=== PATIENT | female | born 1985 | race Caucasian/White ===

== ENCOUNTER 2017-08-29 02:04 | Inpatient (IN) | payer OTHER ==
[2017-08-29] MEDS ORDERED: Nalbuphine 10 MG/1 ML Vial IVPUSH PRN (03:08)
[2017-08-29] MEDS ORDERED: Sodium Chloride 0.9% 10 ML Syringe FLUSH PRN (03:08)
[2017-08-29] MEDS ORDERED: Sodium Chloride 0.9% 2.5 ML Syringe FLUSH PRN (03:08)
[2017-08-29] MEDS ORDERED: Water For Irrigation,Sterile 1,000 ML Container IRR PRN (03:08)
[2017-08-29] MEDS ORDERED: Ampicillin 2 GM in Sodium Chloride 0.9% 100 ML IV ONE (03:08)
[2017-08-29] MEDS ORDERED: Misoprostol 200 MCG Tab PO PRN (03:08)
[2017-08-29] MEDS ORDERED: Lidocaine 1% 50 ML MDV INJECT PRN (03:08)
[2017-08-29] MEDS ORDERED: Carboprost Tromethamine 250 MCG/1 ML Amp IM PRN (03:08)
[2017-08-29] MEDS ORDERED: Butorphanol 1 MG/ML SDV IVPUSH PRN (03:08)
[2017-08-29] MEDS ORDERED: Methylergonovine 0.2 MG/1 ML Amp IM PRN (03:08)
[2017-08-29] MEDS ORDERED: Oxytocin/0.9 % Sodium Chloride 30 UNIT/500 ML BAG IV SCH ×2 (03:15→05:15)
[2017-08-29] MEDS: Lactated Ringers 1,000 ML IV SCH ×4 (03:24→12:04)
[2017-08-29] MEDS: Ampicillin 1 GM in Sodium Chloride 0.9% 50 ML IV SCH ×2 (08:06→11:13)
--- NOTE | 2017-08-29 10:49 | PCM.PREANE ---
Preanesthetic Assessment - Anesthesia/Transfusion/Family Hx Anesthesia History: Prior Anesthesia Without Reaction Transfusion History: No Prior Transfusion(s) - Review of Systems General: No Symptoms Pulmonary: No Symptoms Cardiovascular: No Symptoms Gastrointestinal: No Symptoms Neurological: No Symptoms Other: Reports: None - Physical Assessment Height: 5 ft 4 in Weight: 89.811 kg ASA Class: 2 Mental Status: Alert & Oriented x3 Airway Class: Mallampati = 2 Dentition: Reports: Normal Dentition Thyro-Mental Finger Breadths: 3 Mouth Opening Finger Breadths: 3 ROM/Head Extension: Full Lungs: Clear to Auscultation, Normal Respiratory Effort Cardiovascular: Regular Rate, Regular Rhythm - Lab Values: Laboratory Last Values WBC 6.37 K/uL (4.0-11.0) 08/29/17 03:25 RBC 3.84 M/uL (4.30-5.90) L 08/29/17 03:25 Hgb 11.6 g/dL (12.0-16.0) L 08/29/17 03:25 Hct 33.6 % (36.0-46.0) L 08/29/17 03:25 MCV 87.5 fL (80.0-98.0) 08/29/17 03:25 MCH 30.2 pg (27.0-32.0) 08/29/17 03:25 MCHC 34.5 g/dL (31.0-37.0) 08/29/17 03:25 RDW Std Deviation 41.8 fl (28.0-62.0) 08/29/17 03:25 RDW Coeff of Janiya 13 % (11.0-15.0) 08/29/17 03:25 Plt Count 204 K/uL (150-400) 08/29/17 03:25 MPV 12.70 fL (7.40-12.00) H 08/29/17 03:25 Nucleated RBC % 0.0 /100WBC 08/29/17 03:25 Nucleated RBCs # 0 K/uL 08/29/17 03:25 Membrane Rupture POSITIVE 08/29/17 02:25 Blood Type A POSITIVE 08/29/17 03:25 Antibody Screen NEGATIVE 08/29/17 03:25 - Allergies Allergies/Adverse Reactions: Allergies Allergy/AdvReac Type Severity Reaction Status Date / Time No Known Allergies Allergy Verified 04/25/17 17:30 - Acknowledgements Anesthesia Type Planned: Epidural Pt an Appropriate Candidate for the Planned Anesthesia: Yes Alternatives and Risks of Anesthesia Discussed w Pt/Guardian: Yes Pt/Guardian Understands and Agrees with Anesthesia Plan: Yes PreAnesthesia Questionnaire - Past Health History Medical/Surgical History: Denies Medical/Surgical History HEENT History: Reports: None Cardiovascular History: Reports: None Respiratory History: Reports: None Gastrointestinal History: Reports: GERD Genitourinary History: Reports: Renal Calculus [employer]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 Para: 0 Musculoskeletal History: Reports: SLE Neurological History: Reports: Migraines Endocrine/Metabolic History: Reports: Obesity/BMI 30+, Other (See Below) Other Endocrine/Metabolic History: Lupus Immunologic History: Reports: SLE - Infectious Disease History Infectious Disease History: Reports: Chicken Pox, Human Papilloma Virus (HPV) - Past Surgical History HEENT Surgical History: Reports: Other (See Below) Other HEENT Surgeries/Procedures: [place] teeth extraction - SUBSTANCE USE Smoking Status *Q: Never Smoker Days Per Week of Alcohol Use: 0 Recreational Drug Use History: No - HOME MEDS Home Medications: Home Meds Hydroxychloroquine [Plaquenil] 200 mg PO DAILY 08/01/14 [History] Vit 90/Iron Fum/Folic [ Formula] 1 each PO DAILY 08/01/14 [ History] - CURRENT (IN HOUSE) MEDS Current Meds: Current Medications Butorphanol Tartrate (Stadol) 1 mg IVPUSH Q1H PRN PRN Reason: Pain Carboprost Tromethamine (Hemabate Ds) 250 mcg IM ASDIRECTED PRN PRN Reason: Post Hemorrhage Lactated Ringer's (Ringers, Lactated) 1,000 mls @ 150 mls/hr IV ASDIRECTED ELINOR Last Admin: 08/29/17 08:05 Dose: 150 mls/hr Oxytocin/Sodium Chloride (Oxytocin 30 Unit/500 Ml-Ns) 30 unit in 500 mls @ 999 mls/hr IV TITRATE ELINOR Ampicillin Sodium 1 gm/ Sodium (Chloride) 50 mls @ 100 mls/hr IV Q4H ELINOR Last Admin: 08/29/17 08:06 Dose: 100 mls/hr Oxytocin/Sodium Chloride (Oxytocin 30 Unit/500 Ml-Ns) 30 unit in 500 mls @ 2 mls/hr IV TITRATE ELINOR; 2 MUNITS/MIN PRN Reason: Protocol Last Infusion: 08/29/17 08:18 Dose: 4 munits/min, 4 mls/hr Lidocaine HCl (Xylocaine 1%) 50 ml INJECT .ONCE PRN PRN Reason: Laceration repair Methylergonovine Maleate (Methergine) 0.2 mg IM ASDIRECTED PRN PRN Reason: Post Hemorrhage Misoprostol (Cytotec) 200 mcg PO .ONCE PRN PRN Reason: Post Hemorrhage Nalbuphine HCl (Nubain) 10 mg IVPUSH Q1H PRN PRN Reason: Pain (severe 7-10) Sodium Chloride (Saline Flush) 10 ml FLUSH ASDIRECTED PRN PRN Reason: Keep Vein Open Sodium Chloride (Saline Flush) 2.5 ml FLUSH ASDIRECTED PRN PRN Reason: Keep Vein Open Sterile Water (Sterile Water For Irrigation) 1,000 ml IRR ASDIRECTED PRN PRN Reason: delivery Discontinued Medications Ampicillin Sodium 2 gm/ Sodium (Chloride) 100 mls @ 200 mls/hr IV ONETIME ONE Stop: 08/29/17 03:37 Last Admin: 08/29/17 03:41 Dose: 200 mls/hr
[2017-08-29] MEDS ORDERED: fentaNYL 100 MCG/2 ML SDV ONE (10:51)
[2017-08-29] MEDS ORDERED: Ropivacaine HCl/PF 0 ML ONE (10:51)
[2017-08-29] MEDS ORDERED: Docusate Sodium 100 MG Cap PO PRN (13:07)
[2017-08-29] MEDS ORDERED: Ibuprofen 400 MG Tab PO PRN (13:07)
[2017-08-29] MEDS ORDERED: Acetaminophen 500 MG Tab PO PRN ×2 (13:07)
[2017-08-29] MEDS ORDERED: Lanolin 100% Cream 7 GM Tube TOP PRN (13:07)
[2017-08-29] MEDS ORDERED: oxyCODONE 5 MG Tab PO PRN (13:07)
[2017-08-29] MEDS ORDERED: Bisacodyl 10 MG Supp RECTAL PRN (13:07)
[2017-08-29] MEDS: Ibuprofen 800 MG Tab PO PRN ×2 (14:52→21:41)
[2017-08-29] MEDS: Witch Hazel Medicated Pads 40/Jar TOP PRN (14:53)
[2017-08-29] MEDS: Benzocaine/Menthol 20%-0.5% Spray 78 GM Cannister TOP PRN (14:53)
--- NOTE | 2017-08-29 17:19 | PCM48HPAN ---
Post Anesthesia Note - EVALUATION WITHIN 48HRS OF ANESTHETIC Vital Signs in Normal Range: Yes Patient Participated in Evaluation: Yes Respiratory Function Stable: Yes Airway Patent: Yes Cardiovascular Function Stable: Yes Hydration Status Stable: Yes Pain Control Satisfactory: Yes Nausea and Vomiting Control Satisfactory: Yes Mental Status Recovered: Yes
[2017-08-29] MEDS: Hydroxychloroquine 200 MG Tab PO SCH (23:01)
--- NOTE | 2017-08-29 23:55 | OR ---
SURGEON: Reena Cramer MD DATE OF PROCEDURE: 08/29/2017 PREOPERATIVE DIAGNOSES: 1. Term at 39 weeks and 1 day. 2. Premature rupture of membranes. 3. Group B streptococcus positive. POSTOPERATIVE DIAGNOSES: 1. Term at 39 weeks and 1 day. 2. Premature rupture of membranes. 3. Group B streptococcus positive. 4. Delivered. PROCEDURE: 1. Spontaneous vaginal delivery. 2. Repair of second-degree perineal laceration. ANESTHESIA: Intrathecal. ESTIMATED BLOOD LOSS: 200 mL. COMPLICATIONS: None. DISPOSITION: Mother and baby stable in Labor and Delivery room, [facility]. FINDINGS: Male , Weight 3820 g, score 9 and 9 at 1 and 5 minutes respectively. Grossly normal placenta with 3-vessel cord. Second-degree midline perineal laceration. BRIEF HISTORY: Germaine is a 32-year-old G2, P1, who presented to Labor and Delivery in the early hours of the morning with a history of leakage of clear fluid since about 01:00 p.m. of the previous day. She denied contractions, vaginal bleeding, and reported good movement. GBS status is positive. is complicated by systemic lupus erythematosus, which has been well controlled on Plaquenil. On admission, she was confirmed to have premature rupture of membranes with positive AmniSure. Antibiotics were commenced for positive GBS status and induction of labor commenced with oxytocin as per protocol. Vaginal examination on admission, she was 2 cm, 70% effaced, station -3. After she had received a second dose of antibiotics, artificial rupture of membranes of forebag was performed with clear amniotic fluid noted. She progressed nicely, became fully dilated and commenced active pushing. She pushed quite well bringing the baby's head down to a +4 station, and was set up for delivery in a modified dorsal lithotomy position. The heart tracing was category 2 alternating with category 1. PROCEDURE IN DETAIL: She had a spontaneous vaginal delivery of a live male in direct occipital anterior position, loose nuchal cord was reduced. Anterior and posterior shoulder and the rest of the baby was delivered without difficulty. The baby was vigorous and cried spontaneously at . The baby was delivered onto the maternal abdomen with the nursery nurse in attendance. Delayed cord clamping was performed. With delivery of the infant, oxytocin infusion was changed to titration for active management of 3rd stage of labor. Cord blood and gas samples were obtained.Placenta was delivered by controlled cord traction appeared to be complete and intact. Examination of the perineum revealed a midline second- degree laceration. It was repaired in 3 layers using 2-0 Vicryl suture. Repair was hemostatic. Uterine massage was performed and uterus was found to be well contracted below the umbilicus. The patient tolerated the procedure well. Sponge, instrument, and needle counts were correct at the end of the delivery. ADUMVIV / BECCA /[id number] MTDD
[2017-08-30] MEDS: Ibuprofen 800 MG Tab PO PRN ×2 (04:57→11:46)
--- NOTE | 2017-08-30 07:59 | PCM.PNPP ---
- General Info Date of Service: 08/30/17 Functional Status: Reports: Pain Controlled, Tolerating Diet, Ambulating, Urinating - Review of Systems General: Denies: Fever, Weakness, Malaise, Chills HEENT: Denies: Headaches Pulmonary: Denies: Shortness of Breath, Pleuritic Chest Pain, Cough Cardiovascular: Denies: Chest Pain, Palpitations, Dyspnea on Exertion, Lightheadedness Gastrointestinal: Denies: Diarrhea, Nausea, Vomiting Genitourinary: Denies: Dysuria, Incontinence Psychiatric: Denies: Confusion, Depression, Anxiety - General Info Date of Service: 08/30/17 - Patient Data Vital Signs - Most Recent: Last Vital Signs Temp 36.7 C 08/30/17 04:45 Pulse 81 08/30/17 04:45 Resp 16 08/30/17 04:45 BP 97/60 08/30/17 04:45 Pulse Ox 98 08/30/17 04:45 Weight - Most Recent: 198 lb Lab Results - Last 24 Hours: Laboratory Results - last 24 hr 08/30/17 Range/Units 05:10 Hgb 10.7 L (12.0-16.0) g/dL Hct 31.6 L (36.0-46.0) % Med Orders - Current: Current Medications Acetaminophen (Tylenol Extra Strength) 500 mg PO Q4H PRN PRN Reason: Pain Acetaminophen (Tylenol Extra Strength) 1,000 mg PO Q4H PRN PRN Reason: Pain Benzocaine/Menthol (Dermoplast Pain Relief 20%-0.5% [place]) 78 gm TOP ASDIRECTED PRN PRN Reason: Perineal Comfort Measure Last Admin: 08/29/17 14:53 Dose: 1 can Bisacodyl (Dulcolax) 10 mg RECTAL .ONCE PRN PRN Reason: Constipation Docusate Sodium (Colace) 100 mg PO BID PRN PRN Reason: Constipation Emollient Ointment (Lansinoh Hpa) 0 gm TOP ASDIRECTED PRN PRN Reason: Sore Nipples Last Admin: 08/30/17 04:45 Dose: 1 tube Hydroxychloroquine Sulfate (Plaquenil) 200 mg PO BID ELINOR Last Admin: 08/29/17 23:01 Dose: 200 mg Ibuprofen (Motrin) 400 mg PO Q4H PRN PRN Reason: Pain Ibuprofen (Motrin) 800 mg PO Q6H PRN PRN Reason: Pain Last Admin: 08/30/17 04:57 Dose: 800 mg Methylergonovine Maleate (Methergine) 0.2 mg IM ASDIRECTED PRN PRN Reason: Post Hemorrhage Misoprostol (Cytotec) 200 mcg PO .ONCE PRN PRN Reason: Post Hemorrhage Oxycodone HCl (Oxycodone) 5 mg PO Q2H PRN PRN Reason: Pain Last Admin: 08/29/17 21:42 Dose: 5 mg Witch Megan (Tucks) 1 pad TOP ASDIRECTED PRN PRN Reason: comfort care Last Admin: 08/29/17 14:53 Dose: 1 tub Discontinued Medications Butorphanol Tartrate (Stadol) 1 mg IVPUSH Q1H PRN PRN Reason: Pain Carboprost Tromethamine (Hemabate Ds) 250 mcg IM ASDIRECTED PRN PRN Reason: Post Hemorrhage Fentanyl (Sublimaze) Confirm Administered Dose 100 mcg .ROUTE .STK-MED ONE Stop: 08/29/17 10:52 Last Admin: 08/29/17 23:40 Dose: Not Given Ampicillin Sodium 2 gm/ Sodium (Chloride) 100 mls @ 200 mls/hr IV ONETIME ONE Stop: 08/29/17 03:37 Last Admin: 08/29/17 03:41 Dose: 200 mls/hr Lactated Ringer's (Ringers, Lactated) 1,000 mls @ 150 mls/hr IV ASDIRECTED ELINOR Last Admin: 08/29/17 12:04 Dose: 999 mls/hr Oxytocin/Sodium Chloride (Oxytocin 30 Unit/500 Ml-Ns) 30 unit in 500 mls @ 999 mls/hr IV TITRATE ELINOR Ampicillin Sodium 1 gm/ Sodium (Chloride) 50 mls @ 100 mls/hr IV Q4H ELINOR Last Admin: 08/29/17 11:13 Dose: 100 mls/hr Oxytocin/Sodium Chloride (Oxytocin 30 Unit/500 Ml-Ns) 30 unit in 500 mls @ 2 mls/hr IV TITRATE ELINOR; 2 MUNITS/MIN PRN Reason: Protocol Last Infusion: 08/29/17 08:18 Dose: 4 munits/min, 4 mls/hr Ropivacaine (Naropin 0.2%) Confirm Administered Dose 100 mls @ as directed .ROUTE .STK-MED ONE Stop: 08/29/17 10:52 Last Admin: 08/29/17 23:40 Dose: Not Given Lidocaine HCl (Xylocaine 1%) 50 ml INJECT .ONCE PRN PRN Reason: Laceration repair Nalbuphine HCl (Nubain) 10 mg IVPUSH Q1H PRN PRN Reason: Pain (severe 7-10) Sodium Chloride (Saline Flush) 10 ml FLUSH ASDIRECTED PRN PRN Reason: Keep Vein Open Sodium Chloride (Saline Flush) 2.5 ml FLUSH ASDIRECTED PRN PRN Reason: Keep Vein Open Sterile Water (Sterile Water For Irrigation) 1,000 ml IRR ASDIRECTED PRN PRN Reason: delivery - Interaction Infant Disposition, : [place] in Room with Family Infant Interaction: Holding Infant Feeding: Attempted ; Nursed Fair/Poor, Bottle Fed Infant, Continues to Breastfeed, Encouraged to Breastfeed Support Person: - Recovery Exam Fundal Tone: Firm Fundal Level: At Umbilicus Fundal Placement: Midline Lochia Amount: Scant Lochia Color: Rubra/Red Perineum Description: Other (see below) Other Perinuem Description: 2nd degree laceration Episiotomy/Laceration: Approximated Bladder Status: Voiding Urinary Elimination: Voided - Exam General: Alert, Oriented HEENT: Pupils Equal Neck: Supple Lungs: Clear to Auscultation, Normal Respiratory Effort Cardiovascular: Regular Rate, Regular Rhythm GI/Abdominal Exam: Normal Bowel Sounds, Non-Tender Extremities: Non-Tender, Pedal Edema Psy/Mental Status: Alert, Normal Affect, Normal Mood - Problem List & Annotations (1) Vaginal delivery SNOMED Code(s): 047074000 Code(s): O80 - ENCOUNTER FOR FULL-TERM UNCOMPLICATED DELIVERY Status: Acute Current Visit: No - Problem List Review Problem List Initiated/Reviewed/Updated: Yes - My Orders Last 24 Hours: My Active Orders 08/29/17 13:07 Patient Status [ADT] Routine May Shower [RC] ASDIRECTED Up ad Rylie [RC] ASDIRECTED Vital Signs [RC] PER UNIT ROUTINE Acetaminophen [Tylenol Extra Strength] 1,000 mg PO Q4H PRN Acetaminophen [Tylenol Extra Strength] 500 mg PO Q4H PRN Benzocaine/Menthol [Dermoplast Pain Relief 20%-0.5% [place]] 78 gm TOP ASDIRECTED PRN Bisacodyl [Dulcolax] 10 mg RECTAL .ONCE PRN Docusate Sodium [Colace] 100 mg PO BID PRN Ibuprofen [Motrin] 400 mg PO Q4H PRN Ibuprofen [Motrin] 800 mg PO Q6H PRN Lanolin [Lansinoh HPA] See Dose Instructions TOP ASDIRECTED PRN Witch Megan [Tucks] 1 pad TOP ASDIRECTED PRN oxyCODONE 5 mg PO Q2H PRN Assess Lochia [WOMSER] Per Unit Routine Assess Uterine Involution [WOMSER] Per Unit Routine Peripheral IV Discontinue [OM.PC] Routine Resuscitation Status Routine 08/29/17 21:00 Hydroxychloroquine [Plaquenil] 200 mg PO BID 08/29/17 Lunch Regular Diet [DIET] - Assessment Assessment:: PPD#1 s/p , stable and afebrile - Plan Plan:: Patient is struggling with breast feeding and would stay another day to continue to work on it. Discharge plans for tomorrow
[2017-08-30 09:02] VITALS: BP 101/49
[2017-08-30] MEDS: Hydroxychloroquine 200 MG Tab PO SCH (12:06)
[2017-08-30] MEDS: Witch Hazel Medicated Pads 40/Jar TOP PRN (15:38)
[2017-08-30] MEDS: Benzocaine/Menthol 20%-0.5% Spray 78 GM Cannister TOP PRN (15:39)
== END 2017-08-30 16:05 | disposition home or self-care (01) | DRG 775 ==
LOC: MW.OBCHECK 02:04 → MW.OB 03:08 → OBSVTOIN 11:19 → MW.OB 11:19
PROVIDERS: ADMIT Obstetrics & Gynecology; ATTEND Obstetrics & Gynecology
PROC: 10E0XZZ Delivery of Products of Conception, External Approach (ICD-10-PCS; principal; 2017-08-29)
PROC: 0KQM0ZZ Repair Perineum Muscle, Open Approach (ICD-10-PCS; 2017-08-29)
PROC: 00HU33Z Insertion of Infusion Device into Spinal Canal, Percutaneous Approach (ICD-10-PCS; 2017-08-29)
DX: O42.02 Full-term premature rupture of membranes, onset of labor within 24 hours of rupture (principal); O70.1 Second degree perineal laceration during delivery; O99.824 Streptococcus B carrier state complicating childbirth; L93.0 Discoid lupus erythematosus; Z3A.39 39 weeks gestation of pregnancy; Z37.0 Single live birth; Z79.899 Other long term (current) drug therapy
CPT/HCPCS: 01967; 36415; 51701; 59025; 59409; 84112; 85014; 85018; 85027; 86850; 86900; 86901; A9270-GY; J0290; J2590; J7030; J7050; J7120

== ENCOUNTER 2020-07-14 13:11 | Emergency (ER) | payer BC, OTHER ==
--- NOTE | 2020-07-14 13:17 | EDM.PDOC ---
ED HPI GENERAL MEDICAL PROBLEM - General Chief Complaint: Respiratory Problem Stated Complaint: SOB COVID Time Seen by Provider: 07/14/20 13:11 Source of Information: Reports: Patient History Limitations: Reports: No Limitations - History of Present Illness INITIAL COMMENTS - FREE TEXT/NARRATIVE: HISTORY AND PHYSICAL: History of present illness: Patient is a 35-year-old female who presents to the emergency room with complaints of cough and shortness of breath. She tested positive for COVID-19 on 07/12/2020. She states that there are times where she feels like her chest is very tight and it is hard to take in a deep breath. She is wondering if there is a medication I can prescribe to help alleviate her symptoms. Patient denies any fever, chills, headache, change in vision, syncope or near syncope. Denies any back or chest pain. Denies any abdominal pain, nausea, vomiting, diarrhea, constipation or dysuria. Patient has been eating and drinking appropriately. Review of systems: As per history of present illness and below otherwise all systems reviewed and negative. Past medical history: As per history of present illness and as reviewed below otherwise noncon tributory. Surgical history: As per history of present illness and as reviewed below otherwise noncontributory. Social history: See social history for further information Family history: As per history of present illness and as reviewed below otherwise noncontributory. Physical exam: General: Well developed and well nourished 35-year-old female. Alert and orientated x 3. Nontoxic in appearance and in no acute distress. Vital signs are stable and have been reviewed by me. Nursing notes were reviewed. HEENT: Atraumatic, normocephalic, pupils equal and reactive bilaterally, negative for conjunctival pallor or scleral icterus, mucous membranes moist, TMs normal bilaterally, throat clear, neck supple, nontender, trachea midline. No drooling or trismus noted. No meningeal signs. No hot potato voice noted. Lungs: Clear to auscultation, breath sounds equal bilaterally, chest nontender. Normal work of breathing, no accessory muscles used. Heart: S1S2, regular rate and rhythm without overt murmur Abdomen: Soft, nondistended, nontender. Negative for masses or hepatosplenomegaly. Negative for costovertebral tenderness. Skin: Intact, warm, dry. No lesions or rashes noted. Hematologic: No petechiae or purpra. Mucosa appropriate color and normal nail bed color and refill. Extremities: Atraumatic, moves all extremities per self without difficulty or deficits, negative for cords or calf pain. Neurovascular unremarkable. Neuro: Awake, alert, oriented. Cranial nerves II through XII unremarkable. Cerebellum unremarkable. Motor and sensory unremarkable throughout. Exam nonfocal. Psychiatric: Mood and affect are appropriate. Normal thought process. Answering questions appropriately. Notes: The patient has remained stable throughout the entire ED visit and is without objective evidence for acute process requiring urgent intervention or hospitalization. The patient is stable for discharge, counseling was provided and we discussed in great detail signs and symptoms that would prompt them to return to the Emergency Department. Medication, follow up and supportive care measures were reviewed and discussed. Voices understanding and is agreeable to plan of care. Denies any further questions or concerns at this time. Diagnostics: None Therapeutics: None Prescription: None Impression: JOSE RAUL Dobson Plan: 1. You are considered contagious. Your vital signs and oxygen saturation are well enough that you were able to monitor your symptoms at home. Continue to monitor for trouble breathing, new confusion or inability to arouse, bluish lips or face or any of the other symptoms we discussed -if this occurs please return to the emergency room. 2. Please self quarantine over the next 2 weeks. Inform any persons that you have been in contact with since you started becoming symptomatic that you have tested positive; they should be made aware and take the appropriate steps as needed. 3. You can take NyQuil during the evening to help get a restful night sleep. 4. You may alternate Tylenol and ibuprofen as needed for pain and fever management. 5. The [facility] department will be calling you and following up with you. The [place] COVID 19 Hotline phone number , They are open Sunday - Sunday 7am - 7pm. Follow up with your primary care provider for re-evaluation and re-testing after the 2 week quarantine and discuss when you should be seen. Definitive disposition and diagnosis as appropriate pending reevaluation and review of above. 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: Musculoskeletal History: Reports: SLE Neurological History: Reports: Migraines Endocrine/Metabolic History: Reports: Obesity/BMI 30+, Other (See Below) Other Endocrine/Metabolic History: Lupus Immunologic History: Reports: SLE - Infectious Disease History Infectious Disease History: Reports: Chicken Pox, Human Papilloma Virus (HPV) - Past Surgical History HEENT Surgical History: Reports: Other (See Below) Other HEENT Surgeries/Procedures: [place] teeth extraction Social & Family History - Family History Cardiac: Reports: Hypertension OBGYN: Reports: Musculoskeletal: Reports: Gout Endocrine/Metabolic: Reports: Other (See Below) Other Endocrine/Metabolic Family History: Diabetes Dermatologic: Reports: None Oncologic: Reports: Breast Other Oncologic Family History: Cancer - Caffeine Use Caffeine Use: Reports: Coffee ED ROS GENERAL - Review of Systems Review Of Systems: Comprehensive ROS is negative, except as noted in HPI. ED EXAM, GENERAL - Physical Exam Exam: See Below (See dictation) Course - Vital Signs Last Recorded V/S: Last Vital Signs Temp 97.8 F 07/14/20 13:18 Pulse 82 07/14/20 13:18 Resp 16 07/14/20 13:18 BP 119/70 07/14/20 13:18 Pulse Ox 97 07/14/20 13:18 Departure - Departure Time of Disposition: 13:30 Disposition: Home, Self-Care 01 Clinical Impression: COVID-19 - Discharge Information Instructions: COVID-19 Forms: ED Department Discharge Additional Instructions: The following information is given to patients seen in the emergency department who are being discharged to home. This information is to outline your options for follow-up care. We provide all patients seen in our emergency department with a follow-up referral. The need for follow-up, as well as the timing and circumstances, are variable depending upon the specifics of your emergency department visit. If you don't have a primary care physician on staff, we will provide you with a referral. We always advise you to contact your personal physician following an emergency department visit to inform them of the circumstance of the visit and for follow-up with them and/or the need for any referrals to a consulting sp ecialist. The emergency department will also refer you to a specialist when appropriate. This referral assures that you have the opportunity for follow-up care with a specialist. All of these measure are taken in an effort to provide you with optimal care, which includes your follow-up. Under all circumstances we always encourage you to contact your private physician who remains a resource for coordinating your care. When calling for follow-up care, please make the office aware that this follow-up is from your recent emergency room visit. If for any reason you are refused follow-up, please contact the [facility] Emergency Department at and asked to speak to the emergency department charge nurse. [facility] [address] [place] [id number] [address] Thank you for choosing the [facility] emergency department in [place] for your medical needs today. It was a pleasure caring for you. Today you were seen in the emergency department for COVID-19 related symptoms 1. You are considered contagious. Your vital signs and oxygen saturation are well enough that you were able to monitor your symptoms at home. Continue to monitor for trouble breathing, new confusion or inability to arouse, bluish lips or face or any of the other symptoms we discussed -if this occurs please return to the emergency room. 2. Please self quarantine over the next 2 weeks. Inform any persons that you have been in contact with since you started becoming symptomatic that you have tested positive; they should be made aware and take the appropriate steps as needed. 3. You can take NyQuil during the evening to help get a restful night sleep. 4. You may alternate Tylenol and ibuprofen as needed for pain and fever management. 5. The [facility] department will be calling you and following up with you. The [place] COVID 19 Hotline phone number , They are open Sunday - Sunday 7am - 7pm. Follow up with your primary care provider for re-evaluation and re-testing after the 2 week quarantine and discuss when you should be seen. Sepsis Event Note (ED) - Focused Exam Vital Signs: Vital Signs Temp Pulse Resp BP Pulse Ox 07/14/20 13:18 97.8 F 82 16 119/70 97
[2020-07-14 13:21] VITALS: BP 119/70; PULSE 82
== END 2020-07-14 14:00 | disposition home or self-care (01) ==
LOC: MW.ED 13:11
DX: U07.1 COVID-19 (principal); E66.9 Obesity, unspecified; Z68.32 Body mass index [BMI] 32.0-32.9, adult; Z79.899 Other long term (current) drug therapy
CPT/HCPCS: 99282; 99283

== ENCOUNTER 2020-10-15 00:14 | Emergency (ER) | payer BC ==
--- NOTE | 2020-10-15 00:52 | EDM.PDOC ---
ED HPI GENERAL MEDICAL PROBLEM - General Chief Complaint: Allergic Reaction Stated Complaint: POSSIBLE ALLERGIC REACTION TO MEDS Time Seen by Provider: 10/15/20 00:16 Source of Information: Reports: Patient History Limitations: Reports: No Limitations - History of Present Illness INITIAL COMMENTS - FREE TEXT/NARRATIVE: This is a very pleasant 35-year-old female with a past medical history of lupus presenting with concern for an allergic reaction. Patient is currently taking amoxicillin for otitis media. She states that she took a dose of her amoxicillin around 11:00 this evening. About 30 minutes later, she began experiencing burning to her hands developed a pruritic rash to the chest, neck, abdomen, and back. This is accompanied by some lightheadedness and one episode of vomiting. She took 2 diphenhydramine tablets about 45 minutes later and her symptoms essentially went away. Here in the emergency department, she states that she has no symptoms at the moment. She currently denies any throat swelling, wheezing, shortness of breath, rash, vomiting, or diarrhea. No history of prior allergic reactions to medications. She is no longer feeling lightheaded. ROS: A 10-point review of systems was negative, except as noted in the HPI (or in the ROS section of this note). Past medical history: Reviewed, no additional pertinent history. Surgical history: Reviewed in system, no additional pertinent history. Social history: Reviewed in system, no additional pertinent history. Family history: Reviewed in system, no additional pertinent history. PHYSICAL EXAM Vital signs reviewed. Nursing notes reviewed. Constitutional: Awake, alert, non-distressed. Head: Normocephalic, atraumatic. Eyes: EOMI, conjunctiva normal, no discharge, no scleral icterus. Ears, Nose, Throat: External ears and nose normal, moist oral mucosa. No intraoral or lingual edema. No stridor. TMs and EACs clear bilaterally. Cardiovascular: 2+ radial pulse, capillary refill less than 2 seconds. Pulmonary: normal work of breathing, no accessory muscle use. CTA BL. Abdomen/GI: Soft, nontender, nondistended, no guarding or rigidity, no masses. Musculoskeletal: No deformities. Integumentary: Appropriate color for ethnicity, warm, dry, no pallor or jaundice, no rash. No urticaria. Neurologic: Alert, answering questions appropriately, normal speech, no facial droop, moving all extremities well. Psychiatric: Appropriate mood and affect, normal thought process. This patient was seen and evaluated during the 2019 SARS-CoV-2 novel coronavirus pandemic period. Community viral transmission is ongoing at time of this encounter and the emergency department is operating under pandemic response pro cedures. 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: Musculoskeletal History: Reports: SLE Neurological History: Reports: Migraines Endocrine/Metabolic History: Reports: Obesity/BMI 30+, Other (See Below) Other Endocrine/Metabolic History: Lupus Immunologic History: Reports: SLE - Infectious Disease History Infectious Disease History: Reports: Chicken Pox, Human Papilloma Virus (HPV), Shingles - Past Surgical History HEENT Surgical History: Reports: Other (See Below) Other HEENT Surgeries/Procedures: [place] teeth extraction Social & Family History - Family History Cardiac: Reports: Hypertension OBGYN: Reports: Musculoskeletal: Reports: Gout Endocrine/Metabolic: Reports: Other (See Below) Other Endocrine/Metabolic Family History: Diabetes Dermatologic: Reports: None Oncologic: Reports: Breast Other Oncologic Family History: Cancer - Tobacco Use Tobacco Use Status *Q: Never Tobacco User - Caffeine Use Caffeine Use: Reports: Coffee - Recreational Drug Use Recreational Drug Use: No ED ROS ALLERGIC REACTION - Review of Systems Review Of Systems: See Below ED EXAM GENERAL NO PERIP PULSE - Physical Exam Exam: See Below Course - Vital Signs Text/Narrative:: 35-year-old female presenting with concern for allergic reaction. By history she had urticaria, lightheadedness, and vomiting at home. Her symptoms seem to have totally resolved after she took diphenhydramine prior to arrival. Upon arrival in the emergency department, she is totally symptom-free. I see no evidence of urticaria. There is no evidence of intraoral or lingual swelling or facial swelling, lungs are clear, no evidence of bronchospasm or stridor. She is not having active vomiting or diarrhea. It appears that her symptoms have totally resolved at this point and she does not require any additional antihistamine medication, corticosteroids, or epinephrine. She has no evidence of acute otitis media by my examination so we do not need to prescribe an alternate antibiotic. She states that she is feeling back to normal at this point and has no symptoms or complaints. She is medically cleared to discharge home. We did discuss starting a nonsedating second-generation antihistamine medication once daily such as loratadine along with diphenhydramine as needed for any additional allergic symptoms. We did discuss starting steroids but I do not think we need to necessarily do this at this point given that she did not require any medications in the ED. She did not require any epinephrine so we will not prescribe an epinephrine autoinjector at this point, she has an appointment with her primary care doctor tomorrow and they can discuss this. Plan: Patient is stable to discharge home with outpatient primary care clinic follow-up. Strict emergency department return precautions were provided, patient indicated understanding. All questions were answered prior to departure. Discharged in good condition. Last Recorded V/S: Last Vital Signs Temp 36.0 C L 10/15/20 00:21 Pulse 72 10/15/20 00:21 Resp 16 10/15/20 00:21 BP 126/70 10/15/20 00:21 Pulse Ox 97 10/15/20 00:21 Departure - Departure Time of Disposition: 00:50 Disposition: Home, Self-Care 01 Condition: Good Clinical Impression: Allergic reaction Qualifiers: Encounter type: initial encounter Qualified Code(s): T78.40XA - Allergy, unspecified, initial encounter - Discharge Information *PRESCRIPTION DRUG MONITORING PROGRAM REVIEWED*: Not Applicable *COPY OF PRESCRIPTION DRUG MONITORING REPORT IN PATIENT JOSE: Not Applicable Instructions: Allergies, Adult, [id number], Anaphylactic Reaction, Adult Additional Instructions: You were seen in the emergency department for an allergic reaction. You should never take amoxicillin again until counseled otherwise by your primary doctor. I recommend [id number] Claritin or Zyrtec, once daily. You can also take [id number] diphenhydramine, 25 to 50 mg as needed if any allergic symptoms come back. Warning signs to come back to the ER include: Recurrent or worsening symptoms, facial swelling, throat swelling, shortness of breath, lightheadedness, or any other new or concerning symptoms. Please return the emergency department immediately if your symptoms worsen or if you feel worse. Thank you for choosing the [facility] emergency department in [place] for your medical needs today. It was a pleasure caring for you. The following information is given to patients seen in the emergency department who are being discharged. This information is to outline your options for follow-up care. We provide all patients seen in our emergency department with a follow-up referral. The need for follow-up, as well as the timing and circumstances, are variable depending upon the specifics of your emergency department visit. If you don't have a primary care physician on staff, we will provide you with a referral. We always advise you to contact your personal physician following an emergency department visit to inform them of the circumstance of the visit and for follow-up with them and/or the need for any referrals to a consulting specialist. The emergency department will also refer you to a specialist when appropriate. T his referral assures that you have the opportunity for follow-up care with a specialist. All of these measure are taken in an effort to provide you with optimal care, which includes your follow-up. Under all circumstances we always encourage you to contact your private physician who remains a resource for coordinating your care. When calling for follow-up care, please make the office aware that this follow-up is from your recent emergency room visit. If for any reason you are refused follow-up, please contact the [facility] Emergency Department at and asked to speak to the emergency department charge nurse. If you do not have a primary care physician that is caring for you, you can contact these clinics below to set up an appointment to establish care: [facility] - Primary Care [address] [place] [address] [facility] [address] [place] [id number] Sepsis Event Note (ED) - Evaluation Sepsis Screening Result: No Definite Risk - Focused Exam Vital Signs: Vital Signs Temp Pulse Resp BP Pulse Ox 10/15/20 00:21 36.0 C L 72 16 126/70 97
[2020-10-15 01:04] VITALS: BP 106/74; PULSE 67
== END 2020-10-15 01:04 | disposition home or self-care (01) ==
LOC: MW.ED 00:14
DX: L29.9 Pruritus, unspecified (principal); T36.0X5A Adverse effect of penicillins, initial encounter; M32.9 Systemic lupus erythematosus, unspecified; E66.9 Obesity, unspecified; Z68.30 Body mass index [BMI] 30.0-30.9, adult; Z88.0 Allergy status to penicillin; Z79.899 Other long term (current) drug therapy
CPT/HCPCS: 99282; 99283